=== PATIENT | male | born 1985 | race Caucasian/White ===

== ENCOUNTER 2019-05-19 20:03 | Inpatient (IN) ==
[2019-05-19 21:30] LABS: Partial Thromboplastin Time < 21.0 SECS (20.8-36.0)
[2019-05-19 21:56] LABS: Basophils % 0.2 % (0.0-0.8); Eosinophils % 0.4 % (0.00-10.9); Hematocrit 40.2 VOL% (42.0-52.0); Hemoglobin 14.5 GM/DL (14.0-18.0); Immature Granulocytes % 0.4 %; Immature Granulocytes Absolute 0.04 #; Lymphocytes # 1.8 10*3/uL (1.4-4.0); Lymphocytes % 19.7 % (21.2-54.2); Mean Corpuscular HGB Conc 36.1 GM/DL (32-36); Mean Corpuscular Volume 91.2 FL (87-102); Mean Platelet Volume 10.1 FL (9.6-12.0); Monocytes % 5.5 % (1.7-12.7); Neutrophils % 73.8 % (38.7-73.9); Platelet Count 220 T/CUMM (130-400); Red Blood Count 4.41 MC/CUMM (3.8-5.5); White Blood Count 9.2 T/CUMM (4-12)
[2019-05-19 22:58] LABS: Albumin 3.9 G/DL (3.4-5.0); Bilirubin,Total 0.4 MG/DL (0.2-1.0); Calcium 8.2 MG/DL (8.5-10.1); Osmolality,Calculated 286.8 MOS/KG (273-304); Total Protein 7.4 G/DL (6.4-8.3)
[2019-05-19] MEDS ORDERED: HYDROmorphone 2 MG/1 ML VIAL IV STA (23:32)
[2019-05-19] MEDS ORDERED: ONDANSETRON 4 MG/2 ML VIAL IV STA (23:33)
[2019-05-20] MEDS ORDERED: PANTOPRAZOLE 40 MG VIAL IV STA (01:37)
[2019-05-20] MEDS ORDERED: PROMETHAZINE INJ 25 MG in SODIUM CHLORIDE 0.9% 50 ML IV STA (01:37)
[2019-05-20] MEDS: OCTREOTIDE 500 MCG in SODIUM CHLORIDE 0.9% 100 ML IV SCH ×3 (02:24→21:09)
[2019-05-20] MEDS: PANTOPRAZOLE INJ 200 MG in SODIUM CHLORIDE 0.9% 250 ML IV SCH (03:00)
[2019-05-20] MEDS ORDERED: SODIUM CHLORIDE 0.9% 1,000 ML IV SCH (03:34)
[2019-05-20] MEDS ORDERED: LORazepam 2 MG/1 ML VIAL IV PRN ×2 (03:34→17:00)
[2019-05-20] MEDS ORDERED: ALBUTEROL 2.5 MG/3 ML NEB RESP TX PRN (03:34)
[2019-05-20] MEDS ORDERED: PROMETHAZINE INJ 25 MG in SODIUM CHLORIDE 0.9% 50 ML IV PRN (03:34)
[2019-05-20] MEDS ORDERED: ONDANSETRON 4 MG/2 ML VIAL IV PRN (03:34)
[2019-05-20] MEDS ORDERED: INFLUENZA VIRUS VACCINE 0.5 ML SYRINGE IM ONE (03:49)
[2019-05-20] MEDS ORDERED: THIAMINE INJ 100 MG, FOLIC ACID INJ 1 MG, MULTIVITAMIN INJ 10 ML in SODIUM CHLORIDE 0.9... IV SCH (04:30)
[2019-05-20 05:30] LABS: Hematocrit 39.3 VOL% (42.0-52.0); Hemoglobin 13.9 GM/DL (14.0-18.0)
[2019-05-20 05:31] LABS: Basophils % 0.3 % (0.0-0.8); Eosinophils % 0.5 % (0.00-10.9); Hemoglobin 13.9 GM/DL (14.0-18.0); Immature Granulocytes % 1.2 %; Immature Granulocytes Absolute 0.07 #; Lymphocytes # 1.4 10*3/uL (1.4-4.0); Lymphocytes % 22.6 % (21.2-54.2); Mean Corpuscular HGB Conc 35.6 GM/DL (32-36); Mean Corpuscular Volume 92.9 FL (87-102); Mean Platelet Volume 9.3 FL (9.6-12.0); Monocytes % 7.6 % (1.7-12.7); Neutrophils % 67.8 % (38.7-73.9); Platelet Count 226 T/CUMM (130-400); Red Cell Distribution Width 13.7 % (9.3-17.3); White Blood Count 6.1 T/CUMM (4-12)
[2019-05-20] MEDS: 1: SODIUM CHLORIDE 0.9% 1,000 ML 2: THIAMINE INJ 100 MG, FOLIC ACID INJ 1 MG, MULTIVITA IV SCH ×3 (05:34→22:25)
[2019-05-20 05:39] LABS: PT Patient Result 10.8 SECS (9.6-12.2)
[2019-05-20 05:44] LABS: Calcium 7.6 MG/DL (8.5-10.1); Osmolality,Calculated 276.4 MOS/KG (273-304)
[2019-05-20 09:38] LABS: Hematocrit 38.4 VOL% (42.0-52.0); Hemoglobin 13.8 GM/DL (14.0-18.0)
[2019-05-20 10:11] LABS: Apearance,Urine CLEAR (Clear); Bilirubin,Urine Negative (Negative); Blood, Urine Negative (Negative); Glucose,Urine (UA) Negative (Negative); Ketones,Urine 5 mg/dL (Negative); Nitrite,Urine Negative (Negative); Protein,Urine Negative; RBC,Urine 3 /HPF (0-4); Squamous Epithelial Cell,Urine Occasional /HPF (0-10); Urine Color Yellow (Yellow); Urine Specific Gravity 1.049 (1.001-1.035); Urine Urobilinogen < 2.0 EU/DL (0.2-1.0); WBC,Urine 1 /HPF (0-6)
[2019-05-20 10:17] LABS: Barbiturates Screen,Urine Negative (Negative); Benzodiazepines Screen,Urine Negative (Negative); Cannabinoid Screen,Urine Negative (Negative); Opiate Screen,Urine Positive (Negative); Phencyclidine Screen,Urine Negative (Negative)
[2019-05-20] MEDS: chlordiazePOXIDE 10 MG CAPSULE PO SCH ×3 (10:28→21:09)
[2019-05-20] MEDS: THIAMINE 200 MG/2 ML VIAL IV SCH (10:28)
[2019-05-20] MEDS ORDERED: diphenhydrAMINE CAP 25 MG CAPSULE PO ONE (10:33)
[2019-05-20] MEDS ORDERED: LORazepam 2 MG/1 ML VIAL ONE ×2 (12:09→19:31)
[2019-05-20] MEDS: LORazepam 2 MG/1 ML VIAL IV PRN ×2 (12:17→19:36)
[2019-05-20] MEDS: HYDROmorphone 2 MG/1 ML VIAL IV PRN ×3 (13:35→21:11)
[2019-05-20 16:32] LABS: Hematocrit 37.3 VOL% (42.0-52.0); Hemoglobin 13.3 GM/DL (14.0-18.0)
[2019-05-20 20:57] LABS: Hematocrit 37.2 VOL% (42.0-52.0); Hemoglobin 13.3 GM/DL (14.0-18.0)
[2019-05-21] MEDS ORDERED: LORazepam 2 MG/1 ML VIAL ONE (01:52)
[2019-05-21] MEDS: LORazepam 2 MG/1 ML VIAL IV PRN (01:57)
[2019-05-21] MEDS: HYDROmorphone 2 MG/1 ML VIAL IV PRN ×3 (02:53→13:13)
[2019-05-21 04:09] LABS: Basophils % 0.6 % (0.0-0.8); Eosinophils # 0.1 10*3/uL (0.0-0.87); Eosinophils % 2.8 % (0.00-10.9); Hematocrit 37.9 VOL% (42.0-52.0); Hemoglobin 13.1 GM/DL (14.0-18.0); Immature Granulocytes % 0.2 %; Immature Granulocytes Absolute 0.01 #; Lymphocytes # 1.6 10*3/uL (1.4-4.0); Lymphocytes % 34.3 % (21.2-54.2); Mean Corpuscular HGB Conc 34.6 GM/DL (32-36); Mean Corpuscular Volume 92.7 FL (87-102); Mean Platelet Volume 9.7 FL (9.6-12.0); Monocytes % 10.7 % (1.7-12.7); Neutrophils % 51.4 % (38.7-73.9); Platelet Count 184 T/CUMM (130-400); Red Blood Count 4.09 MC/CUMM (3.8-5.5); Red Cell Distribution Width 13.5 % (9.3-17.3); White Blood Count 4.7 T/CUMM (4-12)
[2019-05-21] MEDS: PANTOPRAZOLE INJ 200 MG in SODIUM CHLORIDE 0.9% 250 ML IV SCH (04:26)
[2019-05-21 04:29] LABS: Calcium 7.1 MG/DL (8.5-10.1); Osmolality,Calculated 275.5 MOS/KG (273-304)
[2019-05-21] MEDS: 1: SODIUM CHLORIDE 0.9% 1,000 ML 2: THIAMINE INJ 100 MG, FOLIC ACID INJ 1 MG, MULTIVITA IV SCH (05:28)
[2019-05-21] MEDS ORDERED: LACTATED RINGERS 1,000 ML IV SCH (06:30)
[2019-05-21] MEDS: OCTREOTIDE 500 MCG in SODIUM CHLORIDE 0.9% 100 ML IV SCH (08:35)
[2019-05-21] MEDS: chlordiazePOXIDE 10 MG CAPSULE PO SCH (09:34)
[2019-05-21] MEDS: THIAMINE 200 MG/2 ML VIAL IV SCH (09:36)
[2019-05-21] MEDS ORDERED: PROPOFOL 200 MG/20 ML VIAL IV ONE (11:58)
[2019-05-21] MEDS ORDERED: LIDOCAINE 100 MG/5 ML SYRINGE ONE (11:58)
[2019-05-21 14:54] VITALS: BP 149/94
[2019-05-21] MEDS ORDERED: PANTOPRAZOLE 40 MG VIAL IV SCH (21:00)
[2019-05-23 09:21] LABS: % CD4 (T Cells) 38 % (32-64); % CD8 (T Cells) 39 % (15-40)
== END 2019-05-21 14:45 | disposition home or self-care (01) | DRG 370 ==
LOC: N.ED 20:03 → SUATTDRO 05-20 02:06 → N.EDINP 05-20 02:06 → N.ICU 05-20 02:59
PROVIDERS: ADMIT Family Medicine; ATTEND Internal Medicine